=== PATIENT | male | born 1950 | race Caucasian/White ===

== ENCOUNTER → 2018-04-17 | Outpatient (CLI) | payer MEDICARE, OTHER | END | disposition home or self-care (01) | LOC: LAB EV 16:31 → LAB SHORT 16:31 | DX: S51.001A Unspecified open wound of right elbow, initial encounter (principal) | CPT/HCPCS: 87070; 87077; 87147; 87186; 87205 ==

== ENCOUNTER 2018-12-01 09:35 | Day surgery (SDC) | payer MEDICARE, OTHER ==
[~2018-12-01 09:35] MED LIST: AMLO5 PO; BENA20 PO; CHOL10002 PO; Hair, Skin & N1 EACH PO; LEVO-T125 MCG PO; Mobic7.5 MG PO; Oxycodone-Apap1 EAC3 PO; SPIR25 PO; TAMS.4ER PO
--- NOTE | 2018-12-01 09:47 | NUR ---
Ambulatory in Day Surgery Surgical site prepped with 2% Chlorhexidine cloth wipe. History, Chart, Medications and Allergies reviewed before start of procedure.Lungs clear T/O to Auscultation. Patient confirms NPO status and agrees with scheduled surgery. Pre-Op teaching done. Pt verbalizes understanding. Patient reports completing Chlorhexadine shower X2 prior to admission to hospital.
--- NOTE | 2018-12-01 13:30 | NUR ---
RECIEVED PATIENT AND REPORT FROM Raj MULLER. VSS PATIENT AWAKE AND CONVERSING WITH STAFF.
--- NOTE | 2018-12-01 13:32 | NUR ---
ICE APPLIED TO SURGERY SITE
--- NOTE | 2018-12-01 14:18 | NUR ---
REPORTS PAIN AT 2/10 GETTING BETTER STATES SAME BEFORE PAIN RX
--- NOTE | 2018-12-01 14:52 | NUR ---
Discharge instructions reviewed with patient. Patient verbalizes understanding. Copy given to patient to take home. History, Chart, Medications and Allergies reviewed before start of procedure.Patient States Post-Procedure ride home has been arranged. Discharged via wheelchair to private car for ride home.
== END 2018-12-01 22:52 | disposition home or self-care (01) ==
LOC: ORSCMMR 09:35 → ORD 11:00 → ORSCMMR 22:52
PROVIDERS: Surgery
PROC: 0YU60JZ Supplement Left Inguinal Region with Synthetic Substitute, Open Approach (ICD-10-PCS; principal; 2018-12-01 11:00)
DX: K40.91 Unilateral inguinal hernia, without obstruction or gangrene, recurrent (principal); I10 Essential (primary) hypertension; E03.9 Hypothyroidism, unspecified; Z87.891 Personal history of nicotine dependence; Z79.899 Other long term (current) drug therapy
CPT/HCPCS: C1781; J0690; J3010; J7120